=== PATIENT | male | born 1980 | race Caucasian/White ===

== ENCOUNTER 2018-01-07 09:52 | Emergency (ER) | payer MEDICARE, OTHER ==
[~2018-01-07] VITALS: Ht 177.8 cm; Wt 86.4 kg
[~2018-01-07 09:52] MED LIST: AMBIEN5 MG PO; BUTALBITAL/APAP1 TA1 PO; CALCIPOTRIENE; CATAPRES PATCH; CELEXA; CELEXA 20MG20 MG/TAB PO; CELEXA40 MG PO; CLOBETASOL PROPIONAT; COLACE100 MG PO; DESYREL 50MG50 MG PO; EXALGO8 MG PO; FLEXERIL10 MG PO; LEVITRA; LORTAB 5/500 501 TAB PO; LYRICA; LYRICA50 MG PO; NAPROXEN EC500 MG PO; NEXIUM PO; PERCR 7.5 PO; PRILOSEC 20MG20 MG PO; RITALIN; ROBAXIN 75750 MG/TA1 PO; SEROQUEL; SEROQUEL100 MG PO; TOPAMAX 25MG25 MG PO; TOPAMAX50 MG PO; TRAZADONE HYDR100 MG PO; ULTRAM; VIAGRA50 MG PO; ZANTAC 150150 MG PO
[2018-01-07 09:58] VITALS: BP 138/89; TEMP 97.4
[2018-01-07] MEDS ORDERED: RITALIN10 MG PO (10:07)
[2018-01-07] MEDS ORDERED: NORCO 325 MG-51 TAB PO (11:04)
[2018-01-07] MEDS ORDERED: CLEOCIN HC150 MG/CAP PO (11:04)
[2018-01-07 11:37] VITALS: PULSE 86
== END 2018-01-07 11:44 | disposition home or self-care (01) ==
LOC: COL.ER 09:52
DX: M25.521 Pain in right elbow (principal); F43.10 Post-traumatic stress disorder, unspecified; F17.210 Nicotine dependence, cigarettes, uncomplicated; W22.8XXA Striking against or struck by other objects, initial encounter

== ENCOUNTER 2018-03-02 15:45 | Emergency (ER) | payer MEDICARE, OTHER ==
[~2018-03-02] VITALS: Ht 177.8 cm; Wt 85.3 kg
[~2018-03-02 15:45] MED LIST changes: +CLEOCIN HC150 MG/CAP PO; +NORCO 325 MG-51 TAB PO; +RITALIN10 MG PO
[2018-03-02 15:48] VITALS: TEMP 98
[2018-03-02 16:47] LABS: BASO # 0.1 (0.0-0.2); BASO % 0.5 % (0.0-2.0); EOS # 0.2 (0.0-0.7); EOS % 1.9 % (0-4.0); GRAN # 7.4 (1.4-6.5); GRAN % 59.2 % (42.2-75.2); HEMATOCRIT 40.8 % (42.0-52.0); HEMOGLOBIN 14.1 g/dl (13.5-18.0); INR 1.1 (0.8-3.0); LYMPH # 3.8 (1.2-3.4); LYMPH % 29.8 % (20.0-51.0); MEAN CELL VOLUME 88 fl (80.0-100.0); MEAN CORPUSCULAR HEMOGLOBIN 30 pg (27.0-31.0); MEAN CORPUSCULAR HGB CONC 35 g/dl (33.0-37.0); MEAN PLATELET VOLUME 9.4 fl (7.4-10.4); MONO # 1.1 (0.1-0.6); MONO % 8.3 % (1.7-9.3); PLATELET COUNT 282 K/mm3 (130-400); PROTHROMBIN TIME 12.9 SECONDS (9.7-12.8); RED BLOOD COUNT 4.65 M/mm3 (4.20-5.60)
[2018-03-02 16:50] LABS: PARTIAL THROMBOPLASTIN TIME 34.3 SECONDS (26.0-37.0)
[2018-03-02 16:54] LABS: BILIRUBIN,TOTAL 1.4 mg/dL (0.0-1.0); C-REACTIVE PROTEIN 0.9 mg/dL (0.0-0.9); CREATININE, serum 0.94 mg/dL (0.66-1.25); POTASSIUM 3.2 mmol/L (3.4-5.0); TOTAL PROTEIN 7.1 gm/dL (6.4-8.2)
[2018-03-02 17:19] LABS: ERYTHROCYTE SEDIMENTATION RATE 2 mm/hr (0-15)
[2018-03-02] MEDS ORDERED: CLEOCIN HCL300 MG PO (18:51)
[2018-03-02 19:10] VITALS: BP 131/72; PULSE 89
== END 2018-03-02 19:10 | disposition home or self-care (01) ==
LOC: COL.ER 15:45
PROVIDERS: Emergency Medicine
DX: S70.361A Insect bite (nonvenomous), right thigh, initial encounter (principal); L03.115 Cellulitis of right lower limb; F31.9 Bipolar disorder, unspecified; F43.10 Post-traumatic stress disorder, unspecified; F17.210 Nicotine dependence, cigarettes, uncomplicated; Z88.0 Allergy status to penicillin; W57.XXXA Bitten or stung by nonvenomous insect and other nonvenomous arthropods, initial encounter
CPT/HCPCS: J1885; J7030

== ENCOUNTER 2018-06-02 16:51 | Emergency (ER) | payer MEDICARE, OTHER ==
[~2018-06-02] VITALS: Ht 177.8 cm; Wt 84.1 kg
[~2018-06-02 16:51] MED LIST changes: +CLEOCIN HCL300 MG PO
[2018-06-02 16:53] VITALS: TEMP 97.8
[2018-06-02] MEDS ORDERED: DOXYCYCLINE HY100 MG PO (17:42)
[2018-06-02] MEDS ORDERED: NORCO 325 MG-51 TAB PO (17:42)
[2018-06-02 17:51] VITALS: BP 122/66; PULSE 82
== END 2018-06-02 17:54 | disposition home or self-care (01) ==
LOC: COL.ER 16:51
DX: L02.412 Cutaneous abscess of left axilla (principal); Z88.0 Allergy status to penicillin; Z90.49 Acquired absence of other specified parts of digestive tract

== ENCOUNTER 2020-02-06 14:47 | Emergency (ER) | payer MEDICARE, OTHER ==
[~2020-02-06] VITALS: Ht 177.8 cm; Wt 86.4 kg
[~2020-02-06 14:47] MED LIST changes: +DOXYCYCLINE HY100 MG PO
[2020-02-06 14:50] VITALS: TEMP 98.1
[2020-02-06] MEDS ORDERED: BACTRIM DS 8001 TAB PO (16:19)
[2020-02-06 16:55] VITALS: BP 140/104; PULSE 70
[2020-02-06] MEDS ORDERED: SILDENAFIL CITRATE (17:18)
== END 2020-02-06 16:58 | disposition home or self-care (01) ==
LOC: COL.ER 14:47
DX: S90.122A Contusion of left lesser toe(s) without damage to nail, initial encounter (principal); W20.8XXA Other cause of strike by thrown, projected or falling object, initial encounter

== ENCOUNTER 2020-03-19 02:15 | Emergency (ER) | payer MEDICARE, OTHER ==
[~2020-03-19] VITALS: Ht 177.8 cm; Wt 87.7 kg
[~2020-03-19 02:15] MED LIST changes: +BACTRIM DS 8001 TAB PO; +SILDENAFIL CITRATE
[2020-03-19 02:17] VITALS: TEMP 98.2
[2020-03-19] MEDS ORDERED: CLEOCIN HCL300 MG PO (03:02)
[2020-03-19 04:05] VITALS: BP 127/85; PULSE 79
== END 2020-03-19 04:06 | disposition home or self-care (01) ==
LOC: COL.ER 02:15
DX: S81.832A Puncture wound without foreign body, left lower leg, initial encounter (principal); Z23 Encounter for immunization; Z87.820 Personal history of traumatic brain injury; W01.0XXA Fall on same level from slipping, tripping and stumbling without subsequent striking against object, initial encounter; Y92.096 Garden or yard of other non-institutional residence as the place of occurrence of the external cause

== ENCOUNTER 2020-06-03 07:51 | Emergency (ER) | payer MEDICARE, OTHER ==
[~2020-06-03] VITALS: Ht 330.2 cm; Wt 86.4 kg
[2020-06-03 07:59] VITALS: TEMP 98.8
[2020-06-03 08:57] VITALS: BP 122/86; PULSE 99
== END 2020-06-03 09:00 | disposition home or self-care (01) ==
LOC: COL.ER 07:51
DX: S69.92XA Unspecified injury of left wrist, hand and finger(s), initial encounter (principal); F17.210 Nicotine dependence, cigarettes, uncomplicated; Z88.0 Allergy status to penicillin; X50.0XXA Overexertion from strenuous movement or load, initial encounter; Y92.149 Unspecified place in prison as the place of occurrence of the external cause

== ENCOUNTER 2020-06-20 14:33 | Emergency (ER) | payer MEDICARE, OTHER ==
[~2020-06-20] VITALS: Ht 177.8 cm; Wt 79.5 kg
[2020-06-20 14:35] VITALS: BP 128/89; PULSE 79; TEMP 98.1
== END 2020-06-20 16:11 | disposition home or self-care (01) ==
LOC: COL.ER 14:33
DX: S61.214A Laceration without foreign body of right ring finger without damage to nail, initial encounter (principal); W26.0XXA Contact with knife, initial encounter; Z88.0 Allergy status to penicillin

== ENCOUNTER 2020-08-10 13:39 | Emergency (ER) | payer MEDICARE, OTHER ==
[~2020-08-10] VITALS: Ht 177.8 cm; Wt 84.1 kg
[2020-08-10 13:43] VITALS: BP 174/102; TEMP 97
[2020-08-10 15:28] VITALS: PULSE 101
== END 2020-08-10 15:31 | disposition home or self-care (01) ==
LOC: COL.ER 13:39
DX: S40.012A Contusion of left shoulder, initial encounter (principal); S60.222A Contusion of left hand, initial encounter; F17.200 Nicotine dependence, unspecified, uncomplicated; Z88.0 Allergy status to penicillin; V19.40XA Pedal cycle driver injured in collision with unspecified motor vehicles in traffic accident, initial encounter

== ENCOUNTER 2020-10-15 02:34 | Emergency (ER) | payer MEDICARE ==
[~2020-10-15] VITALS: Ht 177.8 cm; Wt 84.1 kg
[2020-10-15 02:50] VITALS: TEMP 98.2
[2020-10-15 04:30] VITALS: BP 145/70; PULSE 78
== END 2020-10-15 04:30 | disposition home or self-care (01) ==
LOC: COL.ER 02:34
DX: S01.81XA Laceration without foreign body of other part of head, initial encounter (principal); Z88.0 Allergy status to penicillin; W25.XXXA Contact with sharp glass, initial encounter; Y92.009 Unspecified place in unspecified non-institutional (private) residence as the place of occurrence of the external cause